=== PATIENT | female | born 1945 | race Caucasian/White ===

== ENCOUNTER 2022-08-03 18:35 | Emergency (ER) | payer OTHER ==
[~2022-08-03] VITALS: Ht 162.6 cm; Wt 64.9 kg
[2022-08-03] MEDS ORDERED: ONDANSETRON ODT 4 MG TAB.RAPDIS ONE (18:40)
[2022-08-03] MEDS ORDERED: ONDANSETRON 4 MG/2 ML VIAL IV ONE (18:45)
[2022-08-03] MEDS ORDERED: ONDANSETRON ODT 4 MG TAB.RAPDIS SL ONE (18:45)
[2022-08-03] MEDS ORDERED: MECLIZINE HCL 25 MG TABLET PO ONE (19:00)
[2022-08-03 19:02] LABS: HEMATOCRIT 41.8 % (31.2-41.9); MEAN CORPUSCULAR HEMOGLOBIN 28.5 uug (24.7-32.8); MEAN CORPUSCULAR VOLUME 86.3 fL (75.5-95.3); PLATELET COUNT (AUTO) 227 K/uL (179-408)
--- NOTE | 2022-08-03 19:07 | NUR ---
Pt BIBA with c/o dizziness, nausea and episode of vomiting, presented with cool and clammy skin. ERMD in the room for MSE.
--- NOTE | 2022-08-03 19:09 | NUR ---
Endorsed to Glory LIZ.
--- NOTE | 2022-08-03 19:14 | NUR ---
Patient back from CT
[2022-08-03] MEDS ORDERED: ONDANSETRON 4 MG/2 ML VIAL ONE (19:16)
[2022-08-03] MEDS ORDERED: MECLIZINE HCL 25 MG TABLET ONE (19:16)
[2022-08-03 19:19] LABS: ALANINE AMINOTRANSFERASE 40 U/L (14-59); ALKALINE PHOSPHATASE 94 U/L (50-136); ASPARTATE AMINOTRANSFERASE 24 U/L (15-37); BILIRUBIN,DIRECT 0.1 mg/dL (0.0-0.2); BILIRUBIN,TOTAL 0.4 mg/dL (0.2-1.0); CARBON DIOXIDE 24 mmol/L (21-32); CHLORIDE 104 mmol/L (98-107); GLUCOSE 153 mg/dL (74-106); POTASSIUM 3.3 mmol/L (3.5-5.1); TOTAL PROTEIN, SERUM 7.5 g/dL (6.4-8.2); UREA NITROGEN, BLOOD 26 mg/dL (7-18)
[2022-08-03 19:23] LABS: THYROID STIMULATING HORMONE 2.137 mIU/mL (0.358-3.740)
[2022-08-03 19:24] LABS: ETHANOL < 3 MG/DL (0-0)
[2022-08-03] MEDS ORDERED: IV NS 1000 ML 1,000 ML IV ONE ×2 (19:45→22:00)
[2022-08-03] MEDS ORDERED: diphenhydrAMINE 50 MG/1 ML VIAL IV ONE (20:00)
[2022-08-03] MEDS ORDERED: METOCLOPRAMIDE HCL 10 MG/2 ML VIAL IV ONE (20:00)
[2022-08-03] MEDS ORDERED: diphenhydrAMINE 50 MG/1 ML VIAL ONE (20:13)
[2022-08-03] MEDS ORDERED: METOCLOPRAMIDE HCL 10 MG/2 ML VIAL ONE (20:13)
[2022-08-03] MEDS ORDERED: MAGNESIUM SULFATE/D5W 200 ML ONE (21:18)
[2022-08-03] MEDS: MAGNESIUM SULFATE/D5W 100 ML IV SCH ×2 (21:20→21:45)
[2022-08-03] MEDS ORDERED: LORAZEPAM 2 MG/1 ML VIAL ONE (21:41)
[2022-08-03] MEDS ORDERED: LORAZEPAM 2 MG/1 ML VIAL IV ONE (21:45)
[2022-08-03] MEDS ORDERED: PIPERACILLIN SODIUM/TAZOBACTAM 3.375 G in IV DEXTROSE 5% 50 ML IV ONE (22:00)
[2022-08-03] MEDS ORDERED: PIPERACILLIN/TAZOBACTAM/D5W 50 ML IV ONE (22:12)
[2022-08-03 22:30] LABS: *BILIRUBIN,URIN NEGATIVE (NEGATIVE); *COLOR,URINE YELLOW (YELLOW); *KETONES,URINE 1+ (NEGATIVE); *UROBILINOGEN,URINE 0.2 E.U./dl (NORMAL); LEUKOCYTE ESTERASE ,URINE TRACE (NEGATIVE); NITRITE, URINE NEGATIVE (NEGATIVE); PH,URINE 8.5 (5.0-8.0); UGLUCOSE NEGATIVE (NEGATIVE)
[2022-08-03 22:35] LABS: *BLOOD, URINE TRACE (NEGATIVE); *CLARITY,URINE SLIGHTLY CLOUDY (CLEAR)
[2022-08-03 22:38] LABS: *AMPHETAMINE, URINE NEGATIVE (NEGATIVE); *CANNABINOID, URINE NEGATIVE (NEGATIVE); *COCCAINE, URINE NEGATIVE (NEGATIVE); *OPIATE, URINE NEGATIVE (NEGATIVE); *PHENCYCLIDINE SCREEN,URINE NEGATIVE (NEGATIVE)
--- NOTE | 2022-08-03 23:15 | NUR ---
Called [facility] for updates. No beds yet. Will call us back for tranfer info
--- NOTE | 2022-08-04 00:28 | NUR ---
Ramón from [facility] called back with transfer infor. Patient will be going to [facility] room 5309B. Call for report is . Accepting MD is Juan Carlos Wallace. ETA of ALS supervisor opening and picking ius [phone] with [facility].
--- NOTE | 2022-08-04 00:53 | NUR ---
report given to Argenis LIZ - [facility]
--- NOTE | 2022-08-04 00:54 | NUR ---
Called radiology for CD copy. Machine is down
--- NOTE | 2022-08-04 01:07 | NUR ---
[facility] unit 153 at bedside for transportation to [facility]
--- NOTE | 2022-08-04 01:10 | NUR ---
Patient Tranfers to outside Facility Physician: Dr Landers Location: [facility]
[2022-08-04 02:17] LABS: BACTERIA,URINE FEW /HPF (NONE SEEN); RBC,URINE 0-3 /HPF (0-3); SQUAMOUS EPITHELIAL CELL,UR MODERATE /HPF (NONE SEEN)
== END 2022-08-04 01:10 | disposition short-term general hospital (02) ==
LOC: ER 18:37
DX: R55 Syncope and collapse (principal); R42 Dizziness and giddiness; E87.20 Acidosis, unspecified; R94.31 Abnormal electrocardiogram [ECG] [EKG]; Z20.822 Contact with and (suspected) exposure to COVID-19; I10 Essential (primary) hypertension; E78.00 Pure hypercholesterolemia, unspecified; I44.0 Atrioventricular block, first degree; R82.81 Pyuria; E87.6 Hypokalemia
CPT/HCPCS: 80076; 80048; 81001; 82140; 83880; 84443; 85025; 85730; 87426; 87040 ×2; 87086; 84484; 36415; 93005; 71045; 70450; 99285; 96361; 96365; 96367; 96375; 83605 ×2; 80320; 80307; J1200; J2060; J3475; J2765; J2405; J2543; J7040 ×2; A4663; G0480; J8597; Q0162